=== PATIENT | male | born 1975 | race Caucasian/White ===

== ENCOUNTER 2017-02-07 10:14 | Emergency (ER) | payer BC, OTHER ==
--- NOTE | 2017-02-07 10:48 | EDM.PDOC ---
ED HPI GENERAL MEDICAL PROBLEM - General Chief Complaint: ENT Problem Stated Complaint: SOMETHING STUCK IN NOISE Time Seen by Provider: 02/07/17 10:30 Source of Information: Reports: Patient History Limitations: Reports: No Limitations - History of Present Illness INITIAL COMMENTS - FREE TEXT/NARRATIVE: History of present illness: [41-year-old male comes in complaining of acoffee stir stick stuck in his left nare. Patient indicates that he was out of town and did not have his CPAP machine and he thought that he would be able to keep his airway open better with some nature of a device in his nose.] Review of systems: As per history of present illness and below otherwise all systems reviewed and negative. Past medical history: As per history of present illness and as reviewed below otherwise noncontributory. Surgical history: As per history of present illness and as reviewed below otherwise noncontributory. Social history: No reported history of drug or alcohol abuse. Family history: As per history of present illness and as reviewed below otherwise noncontributory. Physical exam: HEENT: Atraumatic, normocephalic, pupils reactive, negative for conjunctival pallor or scleral icterus, mucous membranes moist, throat clear, neck supple, nontender, trachea midline. Lungs: Clear to auscultation, breath sounds equal bilaterally, chest nontender. Heart: S1S2, regular, negative for clicks, rubs, or JVD. Abdomen: Soft, nondistended, nontender. Negative for masses or hepatosplenomegaly. Negative for costovertebral tenderness. Pelvis: Stable nontender. Genitourinary: Deferred. Rectal: Deferred. Extremities: Atraumatic, negative for cords or calf pain. Neurovascular unremarkable. Neuro: Awake, alert, oriented. Cranial nerves II through XII unremarkable. Cerebellum unremarkable. Motor and sensory unremarkable throughout. Exam nonfocal. Upon visual exam completely and able to visualize the sister sick either via the near or via the oropharynx patient indicates that he can feel it he certainly is still there but without visualization he understands there is no way to attempt to remove it with a blind sweep. We'll refer to ENT Diagnostics: [] Therapeutics: [] Impression: [#1 nasal foreign body] Plan: [Refer to ENT] Definitive disposition and diagnosis as appropriate pending reevaluation and review of above. - Related Data Allergies Allergy/AdvReac Type Severity Reaction Status Date / Time No Known Allergies Allergy Verified 02/07/17 10:36 Home Meds: Home Meds . [No Known Home Meds] 02/07/17 [History] ED ROS ENT - Review of Systems Review Of Systems: See Below (History of present illness) ED EXAM, ENT - Physical Exam Exam: See Below (History of present illness) Course - Vital Signs Last Recorded V/S: Last Vital Signs Temp 36.6 C 02/07/17 10:37 Pulse 74 02/07/17 10:37 Resp 18 02/07/17 10:37 BP 118/74 02/07/17 10:37 Pulse Ox 96 02/07/17 10:37 Departure - Departure Time of Disposition: 10:47 Disposition: Home, Self-Care 01 Condition: Good Clinical Impression: Nasal foreign body - Discharge Information Instructions: Nasal Foreign Body, Agvc-li-Dven Referrals: PCP,None [Primary Care Provider] - Additional Instructions: The following information is given to patients seen in the emergency department who are being discharged to home. This information is to outline your options for follow-up care. We provide all patients seen in our emergency department with a follow-up referral. The need for follow-up, as well as the timing and circumstances, are variable depending upon the specifics of your emergency department visit. If you don't have a primary care physician on staff, we will provide you with a referral. We always advise you to contact your personal physician following an emergency department visit to inform them of the circumstance of the visit and for follow-up with them and/or the need for any referrals to a consulting specialist. The emergency department will also refer you to a specialist when appropriate. This referral assures that you have the opportunity for follow-up care with a specialist. All of these measure are taken in an effort to provide you with optimal care, which includes your follow-up. Under all circumstances we always encourage you to contact your private physician who remains a resource for coordinating your care. When calling for follow-up care, please make the office aware that this follow-up is from your recent emergency room visit. If for any reason you are refused follow-up, please contact the [facility] Emergency Department at and asked to speak to the emergency department charge nurse. You're being referred to ear nose and throat to facilitate removal of foreign body in your nasal/oral pharyngeal cavity Specialty clinic/ear nose and throat in the building Dr. Resendiz [phone]
[2017-02-07 11:17] VITALS: BP 114/65
== END 2017-02-07 11:13 | disposition home or self-care (01) ==
LOC: MW.ED 10:14
DX: T17.1XXA Foreign body in nostril, initial encounter (principal)
CPT/HCPCS: 99282